=== PATIENT | female | born 1970 | race Caucasian/White ===

== ENCOUNTER 2017-06-05 17:14 | Emergency (ER) | payer OTHER ==
[2017-06-05 17:40] VITALS: BP 119/81
[2017-06-05] MEDS ORDERED: Diphtheria,Pertussis(Acell),Tetanus Vaccine 0.5 ML SDV IM ONE (18:09)
--- NOTE | 2017-06-05 18:42 | EDM.PDOC ---
ED HPI GENERAL MEDICAL PROBLEM - General Chief Complaint: Laceration Stated Complaint: LT MIDDLE FINGER LAC Time Seen by Provider: 06/05/17 17:37 Source of Information: Reports: Patient History Limitations: Reports: No Limitations - History of Present Illness INITIAL COMMENTS - FREE TEXT/NARRATIVE: 47 year old female presents for treatment of a laceration to the right hand middle finger. Injury occurred about 2 hours prior to arrival in the ED. 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 Injury occurred about 2 hours prior to arrival in the ER. She had difficulty controlling the bleeding thus she decided to be seen. Bleeding controlled upon my inspection. No numbness , tingling or decreased ROM. patient is right handed. Does not recall last tetanus. Onset: Today Duration: Hour(s): (2) Location: Reports: Upper Extremity, Right - Related Data Allergies Allergy/AdvReac Type Severity Reaction Status Date / Time erythromycin base Allergy Severe Difficulty Verified 09/26/14 07:40 [Erythromycin Base] Standing Penicillins Allergy Severe Rash Verified 09/26/14 07:40 Sulfa (Sulfonamide Allergy Severe Rash Verified 09/26/14 07:40 Antibiotics) aspirin Allergy Rash Verified 09/25/14 13:16 red dye AdvReac Indigestion Verified 09/25/14 13:16 Home Meds: Home Meds Ferrous Sulfate [Iron] 325 mg PO DAILY 07/13/14 [History] Multivitamin [Multi-Vitamin Daily] 1 tab PO DAILY 07/13/14 [History] Naproxen Sodium [Aleve] 220 mg PO DAILY PRN 07/13/14 [History] FLUoxetine HCl [Fluoxetine HCl] 10 mg PO DAILY 06/05/17 [History] Past Medical History 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 Psychiatric History: Reports: Depression - Past Surgical History GI Surgical History: Reports: Appendectomy Musculoskeletal Surgical History: Reports: Arthroscopic Knee Social & Family History - Family History Family Medical History: Noncontributory - Tobacco Use Smoking Status *Q: Never Smoker Second Hand Smoke Exposure: No - Alcohol Use Days Per Week of Alcohol Use: 0 Number of Drinks Per Day: 0 Total Drinks Per Week: 0 - Recreational Drug Use Recreational Drug Use: No Drug Use in Last 12 Months: No ED ROS GENERAL - Review of Systems Review Of Systems: See Below Musculoskeletal: Reports: Other (no decreased ROM) Skin: Reports: Wound (right hand ventral middle finger distal aspect) Neurological: Denies: Numbness, Tingling ED EXAM, SKIN/RASH Exam: See Below Exam Limited By: No Limitations General Appearance: Alert, WD/WN, No Apparent Distress Respiratory/Chest: No Respiratory Distress Cardiovascular: Normal Peripheral Pulses, Regular Rate, Rhythm Peripheral Pulses: 2+: Radial (L), Radial (R) Neurological: Alert, Oriented, Normal Cognition Psychiatric: Normal Affect, Normal Mood Skin: Warm, Dry Location, Skin: Upper Extremity, Right (middle distal ventral finger 2cm subcutaneous laceration) Characteristics: Linear ED SKIN PROCEDURES - Laceration/Wound Repair Right Distal Ventral Finger Lac/Wound length In cm: 2 Appearance: Subcutaneous Distal NVT: Neuro & Vascular Intact, No Tendon Injury Skin Prep: Other (kerraclens) Exploration/Debridement/Repair: Wound Explored Closed with: Dermabond Sterile Dressing Applied: Nurse Tetanus Status Addressed: Yes Complications: No Course - Vital Signs Last Recorded V/S: Last Vital Signs Temp 36.5 C 06/05/17 17:35 Pulse 57 L 06/05/17 17:35 Resp 16 06/05/17 17:35 BP 119/81 06/05/17 17:35 Pulse Ox 100 06/05/17 17:35 - Orders/Labs/Meds Orders: Active Orders 24 hr Category Date Time Status Vaccines to be Administered [RC] PER UNIT ROUTINE Care 06/05/17 18:09 Active Meds: Medications Discontinued Medications Generic Name Dose Route Start Last Admin Trade Name Freq PRN Reason Stop Dose Admin Diphtheria/Tetanus/Acell Pertussis 0.5 ml 06/05/17 18:09 06/05/17 18:18 Adacel IM 06/05/17 18:10 0.5 ml .ONCE ONE Administration - Re-Assessments/Exams Free Text/Narrative Re-Assessment/Exam: 06/05/17 18:37 Upon my inspection the wound had stopped bleeding. The would was well approximated and I felt we would achieve a good outcome with dermabond. I feel sutures would not give as good of an outcome and may restart the bleeding. Patient tolerated the procedure well. No complications. Tetanus updated. Discharge instructions as documented. Departure - Departure Time of Disposition: 18:39 Disposition: Home, Self-Care 01 Condition: Good Clinical Impression: Laceration - Discharge Information Instructions: Laceration Care, Adult Referrals: PCP,None [Primary Care Provider] - Forms: ED Department Discharge Additional Instructions: Monitor the wound for signs of infection such as increased swelling, pus or redness. Present to the clinic or the ER should these develop. Keep the wound dry and covered. The glue should follow off on its own in about 7-10 days. please return to the ER if your symptoms change or worsen. - My Orders Last 24 Hours: My Active Orders 06/05/17 18:09 Vaccines to be Administered [RC] PER UNIT ROUTINE - Assessment/Plan Last 24 Hours: My Active Orders 06/05/17 18:09 Vaccines to be Administered [RC] PER UNIT ROUTINE
== END 2017-06-05 18:45 | disposition home or self-care (01) ==
LOC: JD.ED 17:14
DX: S61.212A Laceration without foreign body of right middle finger without damage to nail, initial encounter (principal); F32.9 Major depressive disorder, single episode, unspecified; Z88.1 Allergy status to other antibiotic agents; Z88.0 Allergy status to penicillin; Z88.6 Allergy status to analgesic agent; Z88.2 Allergy status to sulfonamides; Z79.899 Other long term (current) drug therapy; Z90.49 Acquired absence of other specified parts of digestive tract; Y28.8XXA Contact with other sharp object, undetermined intent, initial encounter; Y92.212 Middle school as the place of occurrence of the external cause; Y99.0 Civilian activity done for income or pay
CPT/HCPCS: 12001; 90471; 90715; 99282-25; 99283-25

== ENCOUNTER 2023-11-30 20:57 | Emergency (ER) | payer OTHER ==
[2023-11-30] MEDS ORDERED: Sodium Chloride 0.9% 1,000 ML IV ONE (21:48)
[2023-11-30] MEDS ORDERED: Magnesium Sulfate (4.06 MEQ/ML) 5 GM/10 ML SDV IV ONE (21:49)
[2023-11-30] MEDS ORDERED: Metoclopramide 10 MG/2 ML SDV IVPUSH ONE (21:49)
[2023-11-30] MEDS ORDERED: Acetaminophen 325 MG Tab PO ONE (21:49)
[2023-11-30] MEDS ORDERED: Magnesium Sulfate/Water 2 GM in Premix Bag 1 BAG IV ONE (22:00)
[2023-11-30] MEDS ORDERED: Ketorolac 15 MG/ML SDV IM ONE (22:38)
[2023-12-01 01:18] VITALS: BP 123/70; PULSE 74
== END 2023-12-01 00:27 | disposition home or self-care (01) ==
LOC: JD.ED 20:57
DX: G43.909 Migraine, unspecified, not intractable, without status migrainosus (principal); Z88.0 Allergy status to penicillin; Z88.2 Allergy status to sulfonamides; Z88.6 Allergy status to analgesic agent; Z88.1 Allergy status to other antibiotic agents; Z91.041 Radiographic dye allergy status; Z79.899 Other long term (current) drug therapy; Z90.49 Acquired absence of other specified parts of digestive tract
CPT/HCPCS: 70450; 93005; 96365; 96366; 96372; 96375; 99284; A9270; J1885; J2765; J3475; J7030; 93010; 99283

== ENCOUNTER 2023-12-03 13:34 | Emergency (ER) | payer OTHER ==
[2023-12-03] MEDS ORDERED: Metoclopramide 10 MG/2 ML SDV IVPUSH ONE (14:08)
[2023-12-03] MEDS ORDERED: Sodium Chloride 0.9% 1,000 ML IV ONE (14:08)
[2023-12-03] MEDS ORDERED: diphenhydrAMINE 50 MG/ML SDV IVPUSH ONE (14:08)
[2023-12-03] MEDS ORDERED: Magnesium Sulfate (4.06 MEQ/ML) 5 GM/10 ML SDV IV ONE (14:09)
[2023-12-03] MEDS ORDERED: Magnesium Sulfate/Water 2 GM in Premix Bag 1 BAG IV ONE (14:15)
[2023-12-03] MEDS ORDERED: Ketorolac 15 MG/ML SDV IVPUSH ONE (16:02)
[2023-12-03] MEDS ORDERED: Caffeine 200 MG Tab PO ONE (16:04)
[2023-12-03] MEDS ORDERED: HYDROmorphone 0.5 MG/0.5 ML Syringe IVPUSH ONE (17:01)
[2023-12-03] MEDS ORDERED: SUMAtriptan 6 MG/0.5 ML SDV SUBCUT ONE (17:15)
[2023-12-03 18:31] VITALS: BP 119/86; PULSE 76
== END 2023-12-03 18:30 | disposition home or self-care (01) ==
LOC: JD.ED 13:34
DX: G43.909 Migraine, unspecified, not intractable, without status migrainosus (principal); J45.909 Unspecified asthma, uncomplicated; Z88.0 Allergy status to penicillin; Z88.2 Allergy status to sulfonamides; Z88.8 Allergy status to other drugs, medicaments and biological substances; Z91.018 Allergy to other foods; Z91.041 Radiographic dye allergy status; Z90.49 Acquired absence of other specified parts of digestive tract; Z79.899 Other long term (current) drug therapy
CPT/HCPCS: 96365; 96366; 96372; 96375; 99283; A9270; J1170; J1200; J1885; J2765; J3030; J3475; J7030; 99284

== ENCOUNTER 2023-12-08 19:16 | Emergency (ER) | payer OTHER ==
[2023-12-08] MEDS ORDERED: Sodium Chloride 0.9% 10 ML Syringe FLUSH PRN (19:46)
[2023-12-08] MEDS ORDERED: diphenhydrAMINE 50 MG/ML SDV IVPUSH ONE (19:47)
[2023-12-08] MEDS ORDERED: Morphine 4 MG/ML Syringe IVPUSH ONE (19:47)
[2023-12-08] MEDS ORDERED: Metoclopramide 10 MG/2 ML SDV IVPUSH ONE (19:47)
[2023-12-08] MEDS ORDERED: Dexamethasone 4 MG/ML SDV IVPUSH ONE (19:48)
[2023-12-08] MEDS ORDERED: Sodium Chloride 0.9% 1,000 ML IV SCH (20:00)
[2023-12-08 20:45] LABS: BASOPHILS ABSOLUTE AUTO 0.1 K/mm3 (0.0-0.2); BASOPHILS PERCENT AUTO 0.7 % (0.0-1.0); EOSINOPHILS ABSOLUTE AUTO 0.1 K/mm3 (0.0-0.4); EOSINOPHILS PERCENT AUTO 0.6 % (0.0-6.0); HEMATOCRIT 38.6 % (37.0-47.0); HEMOGLOBIN 13.2 gm/dl (12.0-16.0); IMMATURE GRAN ABSOLUTE AUTO 0.03 K/mm3 (0.00-0.05); IMMATURE GRAN PERCENT AUTO 0.3 % (0.0-0.4); LYMPHOCYTES ABSOLUTE AUTO 1.6 K/mm3 (1.0-4.8); MEAN CORPUSCULAR HEMOGLOBIN 31.9 pg (28.0-32.0); MEAN CORPUSCULAR HGB CONC 34.2 g/dl (32.0-36.0); MEAN CORPUSCULAR VOLUME 93.2 fl (83.0-99.0); MEAN PLATELET VOLUME 9.6 fl (9.4-12.3); MONOCYTES ABSOLUTE AUTO 0.4 K/mm3 (0.0-0.8); MONOCYTES PERCENT AUTO 5.1 % (0.0-8.0); NEUTROPHILS ABSOLUTE AUTO 6.5 K/mm3 (1.8-7.7); NEUTROPHILS PERCENT AUTO 75.3 % (41.0-71.0); PLATELET COUNT,PLT 174 K/mm3 (150-400); RED BLOOD CELL COUNT 4.14 M/mm3 (4.10-5.30); WHITE BLOOD CELL COUNT,WBC 8.63 K/mm3 (3.9-11.3)
[2023-12-08 21:14] LABS: A/G RATIO 1.3 (1-2); ALANINE AMINOTRANSFERASE,ALT 25 U/L (14-59); ALBUMIN 4.1 g/dl (3.4-5.0); ALKALINE PHOSPHATASE 101 U/L (46-116); ANION GAP 13.8 (5-15); ASPARTATE AMNIOTRANSFERASE,AST 19 U/L (15-37); BILIRUBIN TOTAL 1.2 mg/dL (0.2-1.0); BLOOD UREA NITROGEN,BUN 18 mg/dL (7-18); BUN/CREATININE RATIO 16.4 (14-18); C-REACTIVE PROTEIN <0.2 mg/dL (<1.0); CARBON DIOXIDE,CO2 26 mEq/L (21-32); CHLORIDE,CL 102 mEq/L (98-107); CREATININE 1.1 mg/dL (0.55-1.02); EST CRCL DRUG DOSING (CG) 56.85 mL/min; ESTIMATED GFR 60 mL/min (>60); GLUCOSE RANDOM 133 mg/dL (70-99); POTASSIUM,K 3.8 mEq/L (3.5-5.1); PROTEIN TOTAL,TP 7.2 g/dl (6.4-8.2); SODIUM,NA 138 mEq/L (136-145)
[2023-12-08 21:20] LABS: TSH 2.378 uIU/mL (0.358-3.74)
[2023-12-08 21:21] LABS: CORONAVIRUS COVID-19 NAA NEGATIVE (NEGATIVE); INFLUENZA A NAA NEGATIVE (NEGATIVE); RESPIRATORY SYNCYTIAL VIR NAA NEGATIVE (NEGATIVE)
[2023-12-08] MEDS ORDERED: Haloperidol Lactate 5 MG/ML SDV IVPUSH ONE (22:00)
[2023-12-08 23:37] VITALS: BP 167/100; PULSE 62
== END 2023-12-08 23:15 | disposition home or self-care (01) ==
LOC: JD.ED 19:16
DX: G43.919 Migraine, unspecified, intractable, without status migrainosus (principal); Z20.822 Contact with and (suspected) exposure to COVID-19; J45.909 Unspecified asthma, uncomplicated; Z79.899 Other long term (current) drug therapy; Z88.0 Allergy status to penicillin; Z88.2 Allergy status to sulfonamides; Z88.6 Allergy status to analgesic agent
CPT/HCPCS: 0241U; 36415; 70450; 80053; 84443; 85025; 86140; 96374; 96375; 99284; J1100; J1200; J1630; J2270; J2765; J3490; J7030

== ENCOUNTER 2024-07-06 07:50 | Day surgery (SDC) | payer OTHER ==
[~2024-07-06 07:50] MED LIST: Propofol 200 MG/20 ML SDV ONE; Sodium Chloride 0.9% 10 ML Syringe FLUSH PRN; Sodium Chloride 0.9% 10 ML Syringe FLUSH SCH
[2024-07-06] MEDS: Lactated Ringers 1,000 ML IV SCH (08:10)
[2024-07-06] MEDS ORDERED: Propofol 200 MG/20 ML SDV ONE (08:24)
[2024-07-06] MEDS ORDERED: Midazolam 1 MG/ML 2 ML SDV ONE (08:24)
[2024-07-06] MEDS ORDERED: Lidocaine 1% 4 ML ONE (08:25)
[2024-07-06 09:43] VITALS: BP 106/67; PULSE 70
== END 2024-07-06 09:35 ==
LOC: JD.SDS 07:50
PROVIDERS: ATTEND Surgery
DX: Z12.11 Encounter for screening for malignant neoplasm of colon (principal); F41.9 Anxiety disorder, unspecified; E78.00 Pure hypercholesterolemia, unspecified; E03.9 Hypothyroidism, unspecified; F32.9 Major depressive disorder, single episode, unspecified; Z79.890 Hormone replacement therapy; Z79.899 Other long term (current) drug therapy; Z91.041 Radiographic dye allergy status; Z88.6 Allergy status to analgesic agent; Z88.1 Allergy status to other antibiotic agents; Z88.0 Allergy status to penicillin; Z88.2 Allergy status to sulfonamides
CPT/HCPCS: 45378; J2250; J2704; J7120; J3490